=== PATIENT | male | born 1960 | race Caucasian/White ===

== ENCOUNTER 2020-10-17 18:30 | Emergency (ER) | payer OTHER, SELFPAY ==
[2020-10-17 18:31] VITALS: BP 154/90; PULSE 81; RESP 17; TEMP 36.4; O2SAT 97; BMI 22.1
--- NOTE | 2020-10-17 18:45 | EKG12_ITS ---
Test Reason : CP Blood Pressure : / mmHG Vent. Rate : 073 BPM Atrial Rate : 073 BPM P-R Int : 148 ms QRS Dur : 098 ms QT Int : 398 ms P-R-T Axes : 067 066 063 degrees QTc Int : 438 ms Normal sinus rhythm Normal ECG Confirmed by KAMARI LOZANO, SIKP ([id number]), editor house organ RADHA GARDNER ([id number]) on 10/20/2020 12:33:50 PM Referred By: Confirmed By:NADINE BENITES MD
--- NOTE | 2020-10-17 18:46 | ED.DCSUM_ITS ---
History of Present Illness Chief Complaint: Chest Pain Informant: Patient, Family Narrative: 59-year-old male presents for the evaluation of chest pain. He tells me over the past 2 weeks he has had a feeling that he was not right. He states is really hard for him to explain. When he woke this morning he had some low back discomfort and a upset stomach. He states he is felt more anxious at work than what he should have. Around 130 2:00 he decided he should leave work and come home. When he got home he notes that he had tingling in his hands and his feet. He states that he had anterior chest pressure with some chest soreness. He states that the hand and feet tingling are still present. His chest is still sore the pressure is better. He has never had a stress test or heart catheterization. He notes a history of migraines. A familial history of coronary artery disease on his father side. He reports a metallic taste in his mouth and feeling of metallic in his abdomen today. Past Medical History - Allergies and Home Meds Allergies/Adverse Reactions: Allergies No Known Allergies Allergy (Verified 10/17/20 18:33) Primary Care Physician: Cecil Banks MD [Primary Care Provider] - Past Medical History: - - Migraines Surgical History: noncontributory Lives: Spouse/ Significant Other Smoking Status: Former smoker Drugs: None Review of Systems General: Denies: Chills, Fever, Sweats Eyes: Denies: Visual changes - bilaterally, Diplopia ENT: Denies: Rhinorrhea, Sore throat Cardiovascular: Reports: Chest pain. Denies: Palpitations Respiratory: Denies: Dyspnea, Cough, Dyspnea on exertion Gastrointestinal: Reports: Abdominal pain. Denies: Nausea, Vomiting, Diarrhea, Melena, Hematochezia Genitourinary: Denies: Dysuria, Hematuria, Frequency Musculoskeletal: Reports: Back pain. Denies: Extremity Pain Skin: Denies: Rash, Wounds Neurological: Reports: Parasthesia. Denies: Headache, Weakness, Numbness Physical Exam Vital Signs/Narrative: Vital Signs Temp Pulse Resp BP Pulse Ox 10/17/20 18:31 97.6 F L 81 17 154/90 H 97 Inital Vital Signs reviewed: Yes General: Well nourished, Well developed, No Acute Distress Head: Normocephalic, Atraumatic Eyes: Perrl, EOMI ENT: Moist mucous membranes, No rhinorrhea Neck: Supple, Nontender Cardiovascular: Regular rate, Regular rhythm, No murmurs Respiratory: No distress, CTA bilaterally, Chest nontender Abdomen: Soft, Nontender, Nondistended, Normal bowel sounds Back: Nontender, Normal Inspection Extremities: Nontender, No edema Skin: Normal color, No rash Neurological: Alert, Oriented x3, Cranial nerves II-XII grossly intact, Normal S trength, Normal Sensation Psychological: Normal affect, Normal Mood Diagnostic/Tx/Re-eval - EKG Initial EKG Interpretation: Sinus Rhythm - Initial EKG shows a normal sinus rhythm at a rate of 73 with no concerning features of ACS or ectopy. This is grossly unchanged from EKG dated 08 March 2010. - Medical Decision Making Patient's initial blood work negative. This includes a troponin which is about 5 hours from the onset of symptoms. CTA of his chest and abdomen demonstrate no aortic dissection or pulmonary embolism. Upon reviewing his labs with him patient notes that he continues to have tingling in his bilateral hands and bilateral feet and as we speak he tells me that it is coming up his legs. However he still has normal movement. The patient's heart score is 2 based on age and risk factors of having apparent with cardiovascular disease before age 65. I spoke with him about a delta troponin and he would like to stay for that. If this is negative I think we can discharge him home. Question what role stress may be causing him. I have asked that he follow-up with his family doctor if he is discharged to talk about stress testing and further evaluation. ED Disposition - Plan for ED Patient: Disposition: Home or Assisted Living Diagnosis: Chest pain, Bilateral leg paresthesia, Paresthesia of hand, bilateral Instructions: ED Chest Pain, Uncertain Cause Referrals: Cecil Banks MD [Primary Care Provider] - As soon as possible
--- NOTE | 2020-10-17 18:54 | RAD_ITS ---
INDICATION: chest pain EXAMINATION/TECHNIQUE: X-RAY - XR Chest 1 View COMPARISON: None. FINDINGS: The lungs are clear. The cardiomediastinal silhouette is unremarkable. No pleural effusion or pneumothorax. No acute osseous abnormalities. RAD/Chest 1 View (Portable) IMPRESSION: No acute radiographic abnormalities. Electronically Signed: Tom Rojas MD at 19:16 EDT Tel , Service support ,
[2020-10-17] MEDS: Aspirin 81 MG TAB.CHEW 324 MG PO (18:56)
[2020-10-17 18:59] LABS: Absolute Lymphocyte Count 1.29 X10^3/uL (0.83-4.51); Absolute Neutrophil Count 4.9 X10^3/uL (2.0-7.7); Basophil# 0.05 X10^3/uL; Basophil% 0.7 % (0-1); Eosinophil# 0.05 X10^3/uL; Eosinophils% 0.7 % (0-5); Hematocrit 49.5 % (40-54); Hemoglobin 16.4 g/dL (13.0-16.5); Lymphocyte # 1.29 X10^3/ul (4.0); Lymphocyte % 19.2 % (19-41); Mean Corp Hgb Conc 33.1 g/dL (32-36); Mean Corpuscular Hgb 31.1 pg (27.0-32.0); Mean Corpuscular Volume 93.8 fL (80-94); Mean Platelet Vol. 11.2 fl (6.2-12.0); Monocyte# 0.48 X10^3/uL; Monocyte% 7.1 % (0-10); NRBC Flagged by Analyzer 0 % (0-5); Neutrophil # 4.85 X10^3/uL (2.7-7.7); Neutrophil % 72.2 % (47-70); Platelet Count 195 K/mm3 (150-450); RBC Distribution Width CV 12.7 % (11.6-14.6); RBC Distribution Width SD 43.9 fl (35.1-43.9); Red Blood Count 5.28 M/mm3 (4.6-6.2); White Blood Count 6.7 K/mm3 (4.4-11.0)
[2020-10-17 19:07] LABS: Prothrombin Time (Protime)PT. 12.3 SECONDS (11.7-14.9)
[2020-10-17 19:08] LABS: Partial Thromboplast Time 23.4 Seconds (24.1-36.2)
[2020-10-17 19:25] LABS: Anion Gap 3 (5-15); BUN 14 mg/dL (7-18); BUN/Creat Ratio 13.9 RATIO (10-20); Calcium,Total 9.8 mg/dL (8.5-10.1); Chloride 105 mmol/L (98-107); Creatinine, Serum 1.01 mg/dL (0.70-1.30); EST Glomerular Filtration Rate 80 mL/min (>60); Est Glom Filt Rate - Afr Amer 97 mL/min (>60); Estimated Creatinine Clearance 82.65 ml/min; Glucose 92 mg/dL (74-106); Magnesium 2.2 mg/dL (1.6-2.6); Potassium 3.9 mmol/L (3.5-5.1); Sodium Level 139 mmol/L (136-145); Thyroid Stim Hormone (TSH) 1.85 uIU/mL (0.358-3.74)
[2020-10-17 19:30] VITALS: BP 117/99; PULSE 71; RESP 17; O2SAT 98
--- NOTE | 2020-10-17 19:52 | CT_ITS ---
STUDY: CTA CHEST, ABDOMEN AND PELVIS REASON FOR EXAM: Male, 59 years old. Concern for aortic dissection. Chest pain for 2 weeks worsening today. Back pain. RADIATION DOSAGE (If Supplied By Facility): CTDIvol = ( 8.36 ) mGy, DLP = ( 550.75 ) mGycm TECHNIQUE: The examination was performed with the intravenous administration of IV 100mL Isovue-370. Post-processing of the angiographic images was performed, with multiplanar reformation and 3D reconstruction. Individualized dose optimization techniques were used for this CT. COMPARISON: Chest, 10/17/2020. FINDINGS: Normal enhancement of the main pulmonary artery and right and left pulmonary arteries. Normal enhancement of the bilateral peripheral pulmonary arteries. There is no demonstrated pulmonary embolism. Normal thoracic aorta and visualized great vessels. There is no demonstrated aortic dissection. Normal heart and pericardium. Normal mediastinum. Normal hilar regions. Normal visualized trachea and bronchi. The lungs are well expanded. Normal pulmonary parenchyma. Normal pleura. Normal chest wall structures. Minimal degenerative changes of the thoracic spine. Abdominal aorta: There is no evidence for abdominal aortic aneurysm or dissection. There is no atherosclerotic changes. Celiac and superior mesenteric arteries: No demonstrated narrowing. Inferior mesenteric artery: No demonstrated narrowing. Right renal artery(arteries): No demonstrated narrowing. Left renal artery(arteries): No demonstrated narrowing. Right common iliac artery: No demonstrated narrowing. Right external iliac artery: No demonstrated narrowing. Right internal iliac artery: No demonstrated narrowing. Left common iliac artery: No demonstrated narrowing. Left external iliac artery: No demonstrated narrowing. Left internal iliac artery: No demonstrated narrowing. Normal liver. Normal gallbladder and biliary ductal system. Normal spleen. Normal pancreas. Normal adrenal glands. Normal kidneys. Normal IVC and retroperitoneum. Normal stomach. Normal small bowel. Normal colon. Appendix is not visualized. Normal urinary bladder. Normal prostate. There is no pelvic lymphadenopathy. No free air or free fluid is seen within the peritoneal cavity. Normal abdominal wall. There are degenerative changes of the lumbar spine. CT/CTA Chst, Abd, Pel W and/or WO IMPRESSION: 1. Normal CTA chest examination, without a demonstrated pulmonary embolism or arterial dissection. 2. No evidence of abdominal aortic dissection or aneurysm. 3. No evidence of acute intra-abdominal or pelvic process. Electronically Signed: Sonny Coyne DO at 20:32 EDT Tel [phone], Service support ,
[2020-10-17 20:00] VITALS: BP 156/82; PULSE 64; RESP 18; O2SAT 98
[2020-10-17 21:00] VITALS: BP 141/85; PULSE 68; RESP 18; O2SAT 98
[2020-10-17 22:00] VITALS: BP 134/79; PULSE 64; RESP 18; O2SAT 98
[2020-10-17 22:36] VITALS: BP 134/81; PULSE 80; RESP 17; O2SAT 98
== END 2020-10-17 22:37 | disposition home or self-care (01) ==
PROVIDERS: Emergency Provider Emergency Medicine; PCP Family Medicine
DX: R07.89 Other chest pain (principal); M54.5 Low back pain; R10.9 Unspecified abdominal pain; R20.2 Paresthesia of skin; G43.909 Migraine, unspecified, not intractable, without status migrainosus; Z87.891 Personal history of nicotine dependence
CPT/HCPCS: 71045; 71275; 74174; 80048; 83735; 84443; 84484; 85025; 85610; 85730; 93005; 99284; Q9967; A4216

== ENCOUNTER 2022-12-03 11:29 | Emergency (ER) | payer OTHER, SELFPAY ==
[2022-12-03 11:29] VITALS: BP 158/91; PULSE 99; RESP 18; TEMP 36.2; O2SAT 98; BMI 23.1
--- NOTE | 2022-12-03 11:35 | ED.RN ---
PT REPORTS THAT [facility] USES [facility] FOR DRUG SCREENING, PT REPORTS THAT HE WAS AT [facility] FOR THE INJURY, AND THEY SENT HIM TO BE SEEN IN ED.
[2022-12-03] MEDS: Cephalexin 500 MG Capsule PO (12:45)
[2022-12-03] MEDS: Lidocaine 1% /Epi 1:100 (20ml) 20 ML Vial INFILT (12:58)
[2022-12-03 13:29] VITALS: RESP 18
[2022-12-03 15:00] VITALS: RESP 18
--- NOTE | 2022-12-03 15:48 | EX.ED.UPPERE ---
HPI History of Present Illness HPI Narrative: Patient presents with right wrist laceration that occurred today. Patient states he was at work when he cut his wrist on the edge of a pipe. Patient states there was blood shooting out initially. Patient states this has improved after pressure. Patient describes his pain as dull. Patient states it is mild. Patient admits to some mild tingling in his fingers after he applied pressure to the wound. Patient denies any weakness. Patient states his tetanus immunizations are up-to-date. Chief Complaint: Laceration Informant: patient Occured/Mechanism Comment: Patient cut wrist on edge of metal pipe Onset/Context/Timing Onset: Today Context: Sudden Onset Timing: Continuous Quality of Pain: Dull Location: Right wrist Worsened by: Nothing Relieved by: Nothing Associated Symptoms Associated Symptoms: Positive for Parasthesia; Negative for Weakness or Loss of Funtion Narrative Tetanus Immunization: <5 years [facility] Medical History Hydrocele Inguinal hernia bilateral, non-recurrent Migraine Home Medications desvenlafaxine 100 mg tablet,extended release 24 hr 100 mg PO DAILY 10/17/20 [History Last Taken Unknown] mirtazapine 15 mg disintegrating tablet 15 mg PO QHS 10/17/20 [History Last Taken Unknown] cephalexin 500 mg capsule 500 mg PO Q6 #40 CAPSULES 12/03/22 [Rx Last Taken Unknown] Allergy/AdvReac Type Severity Reaction Status Date / Time No Known Allergies Allergy Verified 12/03/22 11:29 Surgical History no surgical history no surgical history Social History Smoking Status: Former smoker ROS ROS ED Constitutional Constitutional ED: Denies chills or fever(s) Eyes Eyes: Denies blurry vision or change in vision ENT ENT ED: Denies rhinorrhea or sore throat Cardiovascular Cardiovascular: Denies chest pain or palpitations Respiratory/Chest Respiratory/Chest: Denies cough or dyspnea Gastrointestinal Gastrointestinal: Denies nausea or vomiting Genitourinary Genitourinary ED: Denies dysuria or hematuria Musculoskeletal Musculoskeletal: Denies back pain or neck pain Integumentary Denies abscess or rash Neurologic Neurologic: Denies headache(s) or weakness Allergic/Immunologic Allergic/Immunologic ED: Denies mouth swelling or urticaria EXAM Physical Exam Const Vital Signs: 12/03/22 11:29 12/03/22 13:29 Temperature 97.1 F L Temperature Source Temporal Pulse Rate 99 Respiratory Rate 18 18 Blood Pressure 158/91 H Blood Pressure Mean 113 Pulse Ox 98 Oxygen Delivery Method Room Air Positive well nourished and well developed General Appearance ED: well developed and NAD HEENT Reports moist mucous membranes Neck full ROM and supple Extremity Extremity Narrative: There is a 3.5 cm full-thickness linear laceration over the volar aspect of the left wrist. There are no foreign bodies noted. There is mild bleeding noted. There are no tendon lacerations. There is no pulsatile bleeding noted. Radial pulse was palpated proximal and distal to the wound. Roberth's test was negative. Sensation was intact to light touch in the radial, median, and ulnar areas. Strength is 5/5 in the radial, median, and ulnar areas. Neuro oriented x3, CN's II-XII intact bilaterally, moves all extremities, no focal motor deficits and no sensory deficits noted Sensorium / Orientation: alert Motor Exam: strength 5/5 throughout MDM MDM MDM Narrative Medical decision making narrative: Since the laceration occurred as result of a metal pipe, patient was given a dose of Keflex here. Patient will be given a prescription for Keflex. Patient was advised of the need for suture repair of the wound. Patient is agreeable with this. The wound was cleaned and irrigated with copious amounts of normal saline. The wound was anesthetized with 1% plain lidocaine locally. The wound was closed with 3 horizontal mattress #4-0 nylon sutures under sterile technique. Patient tolerated the procedure well. Bacitracin dressing was applied. Patient was instructed to follow-up with his primary care physician or the [facility] in 7 days for wound recheck and suture removal. Patient was instructed return if worse in any way. Patient understood and was agreeable with the plan. All questions were answered. Discharge Plan Triage Chief Complaint: Laceration ED Provider: Brijesh Reynolds Dx/Rx/DC Orders Clinical Impression: Laceration of right wrist, Elevated blood pressure reading Instructions: ED Laceration Extremity Prescriptions: New cephalexin [cephalexin] 500 mg capsule 500 mg PO Q6 Qty: 40 0RF No Action mirtazapine 15 MG tablet,disintegrating 15 mg PO QHS desvenlafaxine 100 MG tablet extended release 24 hr 100 mg PO DAILY Primary Care Provider: Mark Mckinney Referrals: Mark Mckinney DO [Primary Care Provider] - 7 Days for suture removal Disposition Disposition: Home, Self Care
[2022-12-03 17:00] VITALS: RESP 18
== END 2022-12-03 17:12 | disposition home or self-care (01) ==
PROVIDERS: Emergency Provider Emergency Medicine; Visit Provider Emergency Medicine
DX: S61.511A Laceration without foreign body of right wrist, initial encounter (principal); Z87.891 Personal history of nicotine dependence; R03.0 Elevated blood-pressure reading, without diagnosis of hypertension; W26.8XXA Contact with other sharp object(s), not elsewhere classified, initial encounter; Y99.0 Civilian activity done for income or pay; Y92.69 Other specified industrial and construction area as the place of occurrence of the external cause
CPT/HCPCS: 12002; 99283